=== PATIENT | male | born 1970 | race Caucasian/White ===

== ENCOUNTER 2016-12-17 18:50 | Emergency (ER) | payer BC, OTHER ==
[2016-12-17 19:14] VITALS: BP 146/86
--- NOTE | 2016-12-17 19:55 | UC ---
Dental HPI - HPI Summary HPI Summary: lost part of a tooth and filling upper right side a couple of weeks ago, now has increasing pain in the upper gum - History of Current Complaint Chief Complaint: UCDentalProblem Stated Complaint: DENTAL PAIN Time Seen by Provider: 12/17/16 19:34 Hx Obtained From: Patient Onset/Duration: Gradual Onset, Lasting Days - 4 Severity: Moderate Pain Intensity: 4 Pain Scale Used: 0-10 Numeric Aggravating: Heat, Cold Alleviating: OTC Meds - Allergies/Home Medications Allergies/Adverse Reactions: Allergies Allergy/AdvReac Type Severity Reaction Status Date / Time No Known Allergies Allergy Verified 12/17/16 19:14 Home Medications: Home Medications Fenofibrate(NF) [Tricor(NF)] 48 mg PO DAILY 12/17/16 [History Confirmed 12/17/16 ] Ibuprofen TAB* [Advil TAB*] 800 mg PO ONCE 12/17/16 [History Confirmed 12/17/16] PMH/Surg Hx/FS Hx/Imm Hx Previously Healthy: Yes Cardiovascular History Of: Reports: Hypertension - borderline - Surgical History Surgical History: None - Family History Known Family History: Positive: Renal Disease - father - Social History Occupation: Employed Full-time - student aide Lives: With Family Alcohol Use: Rare Substance Use Type: None Smoking Status (MU): Never Smoked Tobacco - Immunization History Most Recent Influenza Vaccination: none Review of Systems Constitutional: Negative Skin: Negative Eyes: Negative ENT: Dental Pain Respiratory: Negative Cardiovascular: Negative Gastrointestinal: Negative Genitourinary: Negative Motor: Negative Neurovascular: Negative Musculoskeletal: Negative Neurological: Negative Psychological: Negative All Other Systems Reviewed And Are Negative: Yes Physical Exam Triage Information Reviewed: Yes Appearance: Well-Appearing, Pain Distress - mild Vital Signs: Initial Vital Signs Temp 97.8 F 12/17/16 19:09 Pulse 61 12/17/16 19:09 Resp 17 12/17/16 19:09 BP 146/86 12/17/16 19:09 Pulse Ox 99 12/17/16 19:09 Vital Signs Reviewed: Yes Eye Exam: Normal ENT Exam: Normal ENT: Positive: Pharynx normal Dental: Positive: Percussion Tenderness @ - 5, Dental Fracture @ - 5. Negative : Cellulitis @, Cervical Lymphadenopathy Neck exam: Normal Respiratory: Positive: Lungs clear Cardiovascular: Positive: RRR, No Murmur Neurological Exam: Normal Psychological Exam: Normal Skin Exam: Normal Dental Complaint Course/Dx - Course Course Of Treatment: penicillin for abscess; hydrocodone and ibuprofen for pain control - Differential Dx/Diagnosis Differential Diagnosis/Dx: Fractured Tooth Provider Diagnoses: dental abscess and fractured tooth Discharge - Discharge Plan Condition: Stable Disposition: HOME Prescriptions: HYDROcodone/ACETAMIN 5-325 MG* [[place] 5-325 TAB*] 1 tab PO Q6H PRN #20 tab MDD 4 PRN Reason: Pain (Dental) Penicillin VK TAB 500 MG(NF) 500 mg PO QID #28 tab Patient Education Materials: Dental Abscess (ED) Additional Instructions: For pain control, use a base of ibuprofen 800mg three times daily with food. Stop or decrease if it begins to upset your stomach. Use hydrocodone as needed for sleep. You have been prescribed penicillin because the likelihood of forming a dental abscess is high.
== END 2016-12-17 20:08 | disposition home or self-care (01) ==
LOC: UCCORT 18:50
DX: K04.7 Periapical abscess without sinus (principal); M84.48XA Pathological fracture, other site, initial encounter for fracture
CPT/HCPCS: 99202; G0463